=== PATIENT | male | born 1975 | race Caucasian/White ===

== ENCOUNTER 2024-08-25 10:27 | Day surgery (SDC) | payer OTHER ==
[2024-08-25] MEDS: Lactated Ringers 1,000 ML IV SCH (10:48)
[2024-08-25] MEDS ORDERED: Ketamine 200 MG/20 ML MDV ONE (10:52)
[2024-08-25] MEDS ORDERED: Propofol 200 MG/20 ML SDV ONE (10:52)
[2024-08-25] MEDS ORDERED: fentaNYL 50 MCG/ML SDV ONE (10:52)
[2024-08-25] MEDS ORDERED: Midazolam 1 MG/ML 2 ML SDV ONE (10:52)
[2024-08-25 12:13] VITALS: BP 112/70; PULSE 64
== END 2024-08-25 12:12 | disposition home or self-care (01) ==
LOC: CC.SDS 10:27
PROVIDERS: ATTEND Family Medicine
DX: Z12.11 Encounter for screening for malignant neoplasm of colon (principal); K21.9 Gastro-esophageal reflux disease without esophagitis; I10 Essential (primary) hypertension; E78.5 Hyperlipidemia, unspecified; G35 Multiple sclerosis; L72.3 Sebaceous cyst; Z87.891 Personal history of nicotine dependence; Z79.899 Other long term (current) drug therapy
CPT/HCPCS: 00812; J2250; J2704; J3010; J3490; J7120

== ENCOUNTER 2024-09-06 17:26 | Emergency (ER) | payer OTHER ==
[2024-09-06] MEDS: Sodium Chloride 0.9% 1,000 ML IV ONE (17:55)
[2024-09-06 17:56] LABS: APPEARANCE,URINE SLIGHTLY CLOUDY (CLEAR); BASOPHILS ABSOLUTE AUTO 0.05 10^3/uL (0.00-0.50); BASOPHILS PERCENT AUTO 0.4 % (0-1); BILIRUBIN,URINE NEGATIVE (NEGATIVE); COLOR,URINE YELLOW (YELLOW); EOSINOPHILS ABSOLUTE AUTO 0.21 10^3/uL (0.00-1.50); EOSINOPHILS PERCENT AUTO 1.7 % (0-6); GLUCOSE,URINE 250 mg/dL (NEGATIVE); HEMATOCRIT 41.7 % (42.0-52.0); HEMOGLOBIN 14.8 g/dL (14.0-18.0); IMMATURE GRAN ABSOLUTE AUTO 0.04 10^3/uL (0.00-0.49); IMMATURE GRAN PERCENT AUTO 0.3 % (0.0-4.9); KETONES,URINE TRACE mg/dL (NEGATIVE); LEUKOCYTE ESTERASE,URINE NEGATIVE (NEGATIVE); LYMPHOCYTES ABSOLUTE AUTO 1.77 10^3/uL (0.60-5.00); MEAN CORPUSCULAR HEMOGLOBIN 31.2 pg (27.0-32.0); MEAN CORPUSCULAR HGB CONC 35.5 g/dL (32.0-36.0); MEAN CORPUSCULAR VOLUME 87.8 fL (83.0-97.0); MONOCYTES ABSOLUTE AUTO 0.97 10^3/uL (0.00-1.50); MONOCYTES PERCENT AUTO 7.7 % (0-10); NEUTROPHILS ABSOLUTE AUTO 9.59 x10^3/uL (1.80-8.00); NEUTROPHILS PERCENT AUTO 75.9 % (41-71); NITRITE,URINE NEGATIVE (NEGATIVE); OCCULT BLOOD,URINE LARGE (NEGATIVE); PLATELET COUNT,PLT 213 10^3/uL (150-400); PROTEIN,URINE TRACE mg/dL (NEGATIVE); RED BLOOD CELL COUNT 4.75 x10^6/uL (4.50-6.00); WHITE BLOOD CELL COUNT,WBC 12.6 10^3/uL (4.0-11.0)
[2024-09-06] MEDS: Ketorolac 30 MG/ML SDV IVPUSH ONE (17:59)
[2024-09-06] MEDS: Ondansetron 4 MG/2 ML SDV IVPUSH STA (17:59)
[2024-09-06 18:00] LABS: BACTERIA,URINE NOT SEEN /HPF (NOT SEEN); EPITHELIAL CELLS,URINE NOT SEEN /HPF (NOT SEEN); MUCUS,URINE FEW /HPF (NOT SEEN); RBC,URINE 30-40 /HPF (0-5); WBC,URINE NOT SEEN /HPF (0-5)
[2024-09-06 18:07] LABS: ALANINE AMINOTRANSFERASE,ALT 38 U/L (12-78); ALBUMIN 1.7 g/dL (3.4-5.0); ALKALINE PHOSPHATASE 53 U/L (46-116); ASPARTATE AMNIOTRANSFERASE,AST 19 U/L (15-37); BLOOD UREA NITROGEN,BUN 18 mg/dL (7-18); C-REACTIVE PROTEIN < 0.50 mg/dL (<=0.50); CALCIUM 9.6 mg/dL (8.4-10.1); CARBON DIOXIDE,CO2 25 mmol/L (21-32); CHLORIDE,CL 102 mEq/L (98-106); CREATININE 1.2 mg/dL (0.7-1.3); EST CRCL DRUG DOSING (CG) 73.65 mL/min; ESTIMATED GFR 74 mL/min (>=60); GLUCOSE RANDOM 125 mg/dL (75-99); POTASSIUM,K 3.9 mEq/L (3.5-5.0); PROTEIN TOTAL,TP 7.8 g/dL (6.4-8.2); SODIUM,NA 137 mEq/L (136-145)
[2024-09-06] MEDS: Take Home: Acetaminophen/HYDROcodone 325-5 MG, 2 Tab Pack PO ONE (20:08)
== END 2024-09-06 20:25 | disposition home or self-care (01) ==
LOC: CC.ED 17:26
DX: N13.2 Hydronephrosis with renal and ureteral calculous obstruction (principal); I10 Essential (primary) hypertension; E78.00 Pure hypercholesterolemia, unspecified; F17.290 Nicotine dependence, other tobacco product, uncomplicated; Z79.899 Other long term (current) drug therapy
CPT/HCPCS: 36415; 74176; 80053; 81001; 85025; 86140; 96374; 96375; 99284; 99284-25; A9270-GY; J1885; J2405; J7030